=== PATIENT | female | born 1990 | race Caucasian/White ===

== ENCOUNTER 2020-07-05 09:03 | Outpatient (REF) | payer OTHER, SELFPAY ==
[2020-07-05 11:11] LABS: MANUAL DIFF FLAG NO
[2020-07-05 11:20] LABS: Basophils Percent Auto 0.3 % (0-2); Eosinophils Absolute Auto 0.1 X10*3/uL (0.0-0.4); Eosinophils Percent Auto 1.5 % (0-4); Hematocrit 44.1 % (37-47); Hemoglobin 14.3 g/dl (12.0-16.0); Imm Gran Abs Auto 0.03 X10*3/uL (0.00-0.03); Imm Gran Pct Auto 0.3 % (0.0-0.4); Lymphocytes Absolute Auto 2.4 X10*3/uL (1.2-4.9); Lymphocytes Percent Auto 25.4 % (20-40); Mean Corpuscular HGB Conc 32.4 g/dl (31.0-35.0); Mean Corpuscular Hemoglobin 31.2 pg (27.0-33.0); Mean Corpuscular Volume 96.3 fL (80-98); Mean Platelet Volume 10.5 fL (9.4-12.3); Monocytes Absolute Auto 0.6 X10*3/uL (0.1-1.2); Monocytes Percent Auto 5.9 % (2-11); Neutrophils Absolute Auto 6.4 X10*3/uL (2.0-8.3); Neutrophils Percent Auto 66.6 % (45-73); Platelet Count 291 X10*3/uL (160-400); Red Blood Count 4.58 X10*6/uL (4.20-5.50); Red Cell Distribution Width 12.2 % (11.0-16.0); White Blood Count 9.6 X10*3/uL (4.8-10.8)
[2020-07-05 11:47] LABS: Alanine Aminotransferase 20 U/L (0-31); Alkaline Phosphatase 52 U/L (39-117); Anion Gap 15 (12-20); Aspartate Amino Transferase 18 U/L (5-31); Bilirubin Total 0.8 mg/dL (0.0-1.0); Blood Urea Nitrogen 11 mg/dL (9-16); Calcium 9.7 mg/dL (8.4-10.2); Carbon Dioxide 25 mmol/L (22-29); Chloride 102 mmol/L (96-108); Cholesterol 147 mg/dL; Estimated Glomerular Filt Rate > 60; Glucose Fasting 87 mg/dL (60-99); HDL Cholesterol 47 mg/dL; LDL Cholesterol Calculated 85 mg/dl; Potassium 4.4 mmol/l (3.3-5.1); Sodium 138 mmol/L (135-145); Total Protein 7.8 g/dL (6.5-8.0); Triglycerides 78 mg/dL
[2020-07-06 20:18] LABS: Syphilis Screen Nonreactive (Nonreactive)
[2020-07-09 08:33] LABS: HIV AB/AG Nonreactive (Nonreactive); HIV Num 1 0.05 S/CO (0.00-0.99)
[2020-07-09 16:11] LABS: Chlamydia Pneumoniae IgA <1:16 titer (<1:16); Chlamydia Pneumoniae IgG <1:64 titer (<1:64); Chlamydia Pneumoniae IgM <1:10 titer (<1:10); Chlamydia Psittaci IgA <1:16 titer (<1:16); Chlamydia Psittaci IgG <1:64 titer (<1:64); Chlamydia Psittaci IgM <1:10 titer (<1:10); Chlamydia Trachomatis IgA <1:16 titer (<1:16); Chlamydia Trachomatis IgG <1:64 titer (<1:64); Chlamydia Trachomatis IgM <1:10 titer (<1:10)
== END 2020-07-05 09:04 | disposition home or self-care (01) ==
LOC: HO.HMGCLDS 09:03
PROVIDERS: PCP Internal Medicine; Visit Provider Internal Medicine
DX: Z00.00 Encounter for general adult medical examination without abnormal findings (principal)
CPT/HCPCS: 36415; 80053; 80061; 85025; 86631; 86632; 86765; 86780; 87389

== ENCOUNTER 2020-07-05 10:43 | Outpatient (REF) | payer OTHER, SELFPAY | END 2020-07-05 10:44 | disposition home or self-care (01) | LOC: HO.LAB 10:43 | PROVIDERS: Visit Provider Internal Medicine | DX: Z01.419 Encounter for gynecological examination (general) (routine) without abnormal findings (principal) | CPT/HCPCS: 88142 ==

== ENCOUNTER 2021-08-14 14:18 | Emergency (ER) | payer OTHER, SELFPAY ==
[2021-08-14 14:24] VITALS: BP 116/74; PULSE 86; RESP 18; TEMP 37; O2SAT 99; BMI 20.1
--- NOTE | 2021-08-14 14:54 | ECG_ITS ---
Test Reason : dyspnea Blood Pressure : / mmHG Vent. Rate : 063 BPM Atrial Rate : 063 BPM P-R Int : 124 ms QRS Dur : 096 ms QT Int : 396 ms P-R-T Axes : 052 107 059 degrees QTc Int : 405 ms Normal sinus rhythm Rightward axis Incomplete right bundle branch block Borderline ECG No previous ECGs available Referred By: Twan Mcclure Electronically Signed By:TANESHA BANDA MD
--- NOTE | 2021-08-14 14:56 | ED_ITS ---
HPI - SOB/Dyspnea General Chief Complaint: Dyspnea Stated Complaint: diff breathing Time Seen by Provider: 08/14/21 14:47 Source: patient Mode of arrival: ambulatory Limitations: no limitations History of Present Illness HPI Narrative: This is a 30 year old female no known medical history presenting to the ED with shortness of breath and pleuritic chest pain X2 days progressively worsening. Patient states she was seen seen at an urgent care and told she likely had a upper respiratory viral infection based off of chest xray. Rapid COVID there was negative they did a PCR and it is pending. She reports that she had body aches and progressivly worsening shortness of breath, noted to be worse at night. She notes centralized chest pain that is worse with laying down better sitting up, she also notes the pain is worse with deep inspiration. Patient reports young family member sick with an upper respiratory infection. She smokes daily both tobacco and marijuana, not on birthcontrol. Denies fevers, chills, cough, abdominal pain, nausea, vomiting, weakness, dizziness, headaches MD elicited complaint: shortness of breath, pain with inspiration and chest pain Onset (ago): day(s) (2) Timing: constant Severity: moderate Exacerbating factors: lying flat Relieving factors: upright position Associated symptoms: pain with inspiration Treatment prior to arrival: none Related Data Previous Rx's Medication Instructions Recorded hydrocortisone 2.5 % topical cream 1 applic MI BID PRN #30 g 07/05/20 with perineal applicator (Proctosol HC) varenicline 0.5 mg (11)-1 mg (42) See Rx Instructions PO PER PKG DIR 07/05/20 tablets in a dose pack (Chantix #53 ea Starting Month Box) varenicline 1 mg tablet (Chantix 1 mg PO BID #56 tab 07/05/20 Continuing Month Box) nicotine 21 mg/24 hr daily 1 patch TRANSDERMAL DAILY #28 ea 01/22/21 transdermal patch Allergies Allergy/AdvReac Type Severity Reaction Status Date / Time amoxicillin Allergy Unknown rash Verified 10/29/20 08:55 codeine Allergy Unknown nausea and Verified 10/29/20 08:55 vomitting penicillin V Allergy Unknown hives Verified 10/29/20 08:55 Sulfa (Sulfonamide Allergy Unknown hives Verified 10/29/20 08:55 Antibiotics) Review of Systems Review of Systems: Constitutional : No Weight loss, No Fever, No Chills, No Fatigue, No Malaise ENT/Mouth : No sore throat, No Rhinorrhea Eyes: No Eye Pain, No Swelling, No Redness Cardiovascular : + Chest Pain, + SOB, No Dyspnea on Exertion, No Orthopnea, No Edema, No Palpitations Respiratory : No Cough, No Sputum, No Wheezing Gastrointestinal : No Nausea, No Vomiting, No Diarrhea, No Constipation, No abdominal Pain, No Hematochezia, No Melena Genitourinary : No Dysuria, No Urinary Frequency, No Hematuria, Musculoskeletal : No joint pain, No Myalgias, No Joint Swelling Skin : No Skin Lesions, No rash Neuro : No Weakness, No Numbness, No Dizziness, No Headache Psych : No Anxiety/Panic, No Depression All other systems reviewed and are negative FOR[facility]LY [facility] Past Medical History Attestation statement: The following information was validated with the patient. Source: old records reviewed and nursing notes reviewed Medical History Annual physical exam H/O metrorrhagia Hemorrhoids Greybull-Schlatter's disease Tobacco dependence Vitamin D deficiency Surgical History H/O colonoscopy Family History Family History Mother No problems noted. Paternal Grandmother Stroke Son No problems noted. Father Unknown family medical history Social History Social History Cigarettes Per Day: 10 Advance Directives: No Advance Directives Information Provided: No Patient : No Physical Exam Vital Signs: Vital Signs: Last Vital Signs Temp 98.6 F 08/14/21 14:24 Pulse 86 08/14/21 14:24 Resp 18 08/14/21 14:24 BP 116/74 08/14/21 14:24 Pulse Ox 99 08/14/21 14:24 Body Mass Index 20.1 VSS. Appearance: Alert.? Oriented X3.? No acute distress.? Head: Normocephalic, atraumatic, no step-offs or deformities Eyes: Pupils equal, round and reactive to light.? ENT: Pharynx normal.? Neck: Normal inspection.? Neck supple.? CVS: Normal heart rate and rhythm.? Pulses normal.? Respiratory: No respiratory distress.? Breath sounds normal.?+ pain with deep inspiraiton Abdomen: Soft and nontender.? Skin: Skin warm and dry.? Normal skin color.? Normal skin turgor.? Extremities: No lower extremity edema.? No calf ttp. Negative homans sign. 5/5 strength to bilateral upper and lower extremities Back: No midline tenderness, no C-spine tenderness, full range of motion, no CVA tenderness bilaterally Neuro: Oriented X 3.? No motor deficit.? No sensory deficit. Course Reevaluation(s) Reevaluation #1: CBC shows slight leukocytosis, no anemia noted. Flu/COVID/RSV negative. Trop negative. Coags are pending. Urine preg negative. Sign out was lilia gamez to Dr. Mario. At time of sign out patients vitals were stable and she was comfortable and in no acute distress. Pending: D-dimer, if positive plan is to CTA to rule out PE. Time: 16:41 MDM - SOB/Dyspnea MDM Narrative Medical decision making narrative: 1454 30 yo female pmhx significant for tobacco use presents to the ED with pleuritic CP and shortness of breath X2 days progressively worsening. CP worse with laying down and deep inspiration, better sitting upright. Patient is a daily smoker tobacco and marijuana. Upon physical exam, VSS, patient comfortable and in no acute distress. Diminished breath sounds on right when compared to left. S1 and S2 appreciated free of murmurs. Abdomen soft non tender non distended. No focal neuro deficits. B/l upper and lower extermities 5/5 strength with 2+ pulses equal and bilateral. No lower extremity edema, no calf tenderness to palpation. Negative maria eugenia sign. Plan EKG, basic labs, flu/covid/rsv, trop, ddimer, mag, urine preg. Will rule out PE, infection, anemia, pericarditis At this time no need to do CXR at urgent care there was a PA CXR done results pectus excavatum deformity results in apparent increased density in the right paracardiac region. There are increased perihilar markings bilaterally. No focal consolidation identified. The costophrenic angles are shart, without evidence for effusion. Heart size and mediastinal contours are within normal limits. There is scoliosis. Electronically signed on Aug 14, [address] Jackie Guillen M.D. [phone] Medical Records Attestation: I reviewed the patient's medical records. Lab Data Attestation: I reviewed the patient's lab results. Result diagrams: 08/14/21 15:31 08/14/21 15:31 Labs: Lab Results 08/14/21 08/14/21 08/14/21 Range/Units 15:19 15:21 15:31 WBC 11.5 H (4.8-10.8) X10*3/uL RBC 4.19 L (4.20-5.50) X10*6/uL Hgb 13.4 (12.0-16.0) g/dl Hct 39.8 (37.0-47.0) % MCV 95.0 (80.0-98.0) fL MCH 32.0 (27.0-33.0) pg MCHC 33.7 (31.0-35.0) g/dl RDW 12.7 (11.0-16.0) % Plt Count 253 (160-400) X10*3/uL MPV 10.3 (9.4-12.3) fL Immature Gran % (Auto) 0.3 (0.0-0.4) % Neut % (Auto) 67.2 (45-73) % Lymph % (Auto) 24.3 (20-40) % Charles % (Auto) 6.6 (2-11) % Eos % (Auto) 1.3 (0-4) % Baso % (Auto) 0.3 (0-2) % Lymph # (Auto) 2.8 (1.2-4.9) X10*3/uL Charles # (Auto) 0.8 (0.1-1.2) X10*3/uL Eos # (Auto) 0.2 (0.0-0.4) X10*3/uL Baso # (Auto) 0.0 (0.0-0.2) X10*3/uL Abs Immat Gran (auto) 0.03 (0.00-0.03) X10*3/uL Absolute Neuts (auto) 7.7 (2.0-8.3) x10*3/uL Absolute Nucleated RBC 0.000 (0.0-0.012) X10*3/uL Nucleated RBC % (auto) 0.0 (0.0-0.2) /100WBC Troponin I High Sens (<3.5-17.0) ng/L Urine Test NEGATIVE (NEGATIVE) Influenza Type A (PCR) NEGATIVE (Negative) Influenza Type B (PCR) NEGATIVE (Negative) RSV RNA Qual (PCR) NEGATIVE (Negative) SARS-CoV-2 RNA (RT-PCR) NEGATIVE (Negative) 08/14/21 Range/Units 15:31 WBC (4.8-10.8) X10*3/uL RBC (4.20-5.50) X10*6/uL Hgb (12.0-16.0) g/dl Hct (37.0-47.0) % MCV (80.0-98.0) fL MCH (27.0-33.0) pg MCHC (31.0-35.0) g/dl RDW (11.0-16.0) % Plt Count (160-400) X10*3/uL MPV (9.4-12.3) fL Immature Gran % (Auto) (0.0-0.4) % Neut % (Auto) (45-73) % Lymph % (Auto) (20-40) % Charles % (Auto) (2-11) % Eos % (Auto) (0-4) % Baso % (Auto) (0-2) % Lymph # (Auto) (1.2-4.9) X10*3/uL Charles # (Auto) (0.1-1.2) X10*3/uL Eos # (Auto) (0.0-0.4) X10*3/uL Baso # (Auto) (0.0-0.2) X10*3/uL Abs Immat Gran (auto) (0.00-0.03) X10*3/uL Absolute Neuts (auto) (2.0-8.3) x10*3/uL Absolute Nucleated RBC (0.0-0.012) X10*3/uL Nucleated RBC % (auto) (0.0-0.2) /100WBC Troponin I High Sens < 3.5 (<3.5-17.0) ng/L Urine Test (NEGATIVE) Influenza Type A (PCR) (Negative) Influenza Type B (PCR) (Negative) RSV RNA Qual (PCR) (Negative) SARS-CoV-2 RNA (RT-PCR) (Negative) ECG Data Attestation: I personally reviewed and interpreted this ECG as follows: ECG interpretation date: 08/14/21 ECG interpretation time: 15:38 Prior ECG tracings: not available for review Interpretation: Ventricular rate 63, MI normal, QRS normal, QT/QTC normal. NO JOYCE or inversions. No acute ischemia. No previous to compare. Critical Care Time Critical Care Time Critical Care Time: No Discharge Plan Discharge Clinical Impression: Chest pain, pleuritic, Shortness of breath Patient Disposition: Home, Self-Care Instructions: Chest Pain (ED), Shortness of Breath (ED) Additional Instructions: Take your medications as prescribed. Follow-up with your primary care provider this week. Return to the emergency department with new or worsening symptoms. In case of emergency call 911 Prescriptions: No Action nicotine 21 mg/24 hr patch 24 hour 1 patch transdermal DAILY Qty: 28 RF: 5 Chantix Continuing Month Box 1 mg tablet 1 mg PO BID Qty: 56 RF: 1 Chantix Starting Month Box 0.5 mg (11)- 1 mg (42) tablets,dose pack See Rx Instructions PO PER PKG DIR Qty: 53 RF: 0 hydrocortisone [Proctosol HC] 2.5 % cream with perineal applicator 1 applic MI BID PRN (Reason: hemorrhoids) Qty: 30 RF: 1 Referrals: Maria A Hoyos MD [Primary Care Provider] - 2 days Stand Alone Forms: Work/School Release
[2021-08-14 15:37] LABS: MANUAL DIFF FLAG NO
[2021-08-14 15:40] LABS: Basophils Percent Auto 0.3 % (0-2); Eosinophils Absolute Auto 0.2 X10*3/uL (0.0-0.4); Eosinophils Percent Auto 1.3 % (0-4); Hematocrit 39.8 % (37.0-47.0); Hemoglobin 13.4 g/dl (12.0-16.0); Imm Gran Abs Auto 0.03 X10*3/uL (0.00-0.03); Imm Gran Pct Auto 0.3 % (0.0-0.4); Lymphocytes Absolute Auto 2.8 X10*3/uL (1.2-4.9); Lymphocytes Percent Auto 24.3 % (20-40); Mean Corpuscular HGB Conc 33.7 g/dl (31.0-35.0); Mean Platelet Volume 10.3 fL (9.4-12.3); Monocytes Absolute Auto 0.8 X10*3/uL (0.1-1.2); Monocytes Percent Auto 6.6 % (2-11); Neutrophils Absolute Auto 7.7 x10*3/uL (2.0-8.3); Neutrophils Percent Auto 67.2 % (45-73); Platelet Count 253 X10*3/uL (160-400); Red Blood Count 4.19 X10*6/uL (4.20-5.50); Red Cell Distribution Width 12.7 % (11.0-16.0); White Blood Count 11.5 X10*3/uL (4.8-10.8)
[2021-08-14 16:07] LABS: UPreg QC Valid YES; Urine Pregnancy NEGATIVE (NEGATIVE)
[2021-08-14 16:07] LABS: Troponin-I High Sensitivity < 3.5 ng/L (<3.5-17.0)
[2021-08-14 16:21] LABS: Influenza A PCR NEGATIVE (Negative); Influenza B PCR NEGATIVE (Negative); Resp Syncy Virus RNA Qual PCR NEGATIVE (Negative); SARS COV2 PCR INHOUSE NEGATIVE (Negative)
[2021-08-14] MEDS: Ketorolac Tromethamine 15 MG/ML VIAL 30 MG IVPUSH (16:45)
[2021-08-14 17:09] LABS: Alanine Aminotransferase 12 U/L (0-31); Albumin Level 3.9 g/dL (3.5-5.0); Alkaline Phosphatase 48 U/L (39-117); Anion Gap 10 (12-20); Aspartate Amino Transferase 13 U/L (5-31); Bilirubin Total 0.6 mg/dL (0.0-1.0); Blood Urea Nitrogen 7 mg/dL (9-16); Calcium 8.9 mg/dL (8.4-10.2); Carbon Dioxide 25 mmol/L (22-29); Chloride 106 mmol/L (96-108); Creatinine Clr Calc Pharmacy 122.7; Estimated Glomerular Filt Rate > 60; Glucose Random 91 mg/dL (60-115); Magnesium 1.8 mg/dL (1.6-2.6); Potassium 3.8 mmol/L (3.3-5.1); Sodium 137 mmol/L (135-145); Total Protein 6.3 g/dL (6.5-8.0)
[2021-08-14 17:17] VITALS: BP 91/43; PULSE 64; RESP 16; TEMP 37; O2SAT 96
[2021-08-14 17:17] LABS: D Dimer High Sensitivity < 150 NG/ML
[2021-08-14 18:23] VITALS: BP 106/57; PULSE 68; RESP 16; O2SAT 99
== END 2021-08-14 18:35 | disposition home or self-care (01) ==
PROVIDERS: Physician Assistant; Emergency Provider Emergency Medicine Emergency Medical Services; PCP Internal Medicine
DX: R07.81 Pleurodynia (principal); R06.02 Shortness of breath; F17.210 Nicotine dependence, cigarettes, uncomplicated; Z20.822 Contact with and (suspected) exposure to COVID-19
CPT/HCPCS: 0241U; 36415; 80053; 81025; 83735; 84484; 85025; 85379; 93005; 96374; 99284; J1885

== ENCOUNTER 2022-02-11 09:15 | Outpatient (REF) | payer OTHER, SELFPAY ==
--- NOTE | 2022-02-11 16:12 | PFT_ITS ---
INDICATION: Asthma. SPIROMETRY: FEV1 to FVC of 88% with an FEV1 of 2.06 L, which is 91% predicted. An FVC of 3.48 L, which is 86% predicted. No significant response to bronchodilators noted. Maximum voluntary ventilation 104% predicted. LUNG VOLUMES: Total lung capacity 96% predicted with an expiratory reserve volume of 59% predicted. DIFFUSION CAPACITY: DLCO 90% predicted. COMPARISONS: None. INTERPRETATION: No obstructive nor restrictive ventilatory defects identified. No significant response to bronchodilators noted. Normal lung volumes except for decrease in the expiratory reserve volume and a normal diffusion capacity. If asthma is in the differential, a methacholine challenge could be considered to further evaluate for the possibility of hyper-reactive airways disease. Clinical correlation warranted. MD SONIA Bazan/EMERALD / [id number]
== END 2022-02-11 09:16 | disposition home or self-care (01) ==
LOC: HO.RESP 09:15
PROVIDERS: PCP Internal Medicine; Visit Provider Internal Medicine
DX: J45.909 Unspecified asthma, uncomplicated (principal); F17.200 Nicotine dependence, unspecified, uncomplicated
CPT/HCPCS: 94060; 94727; 94729

== ENCOUNTER 2022-03-13 10:02 | Outpatient (REF) | payer OTHER, SELFPAY ==
--- NOTE | 2022-03-13 14:52 | PFT_ITS ---
INDICATION: Evaluation of hyper-reactive airways and diagnosis of asthma. Findings methacholine protocol was followed with increasing incremental dosages of methacholine. The patient underwent multiple spirometries monitoring closely the FEV1. After the highest dose of methacholine of 60 mg, the FEV1 decreased by 17%. It was also noted that the [id number] decreased by 50%. The patient did experience some shortness of breath and mild wheezing during the maneuvers after the maximum dose. INTERPRETATION: This is an equivocal study. The patient did not reach the PD20 after the maximum dose of methacholine, although the patient was symptomatic and had a significant decrease in the small airways. Therefore, it is very suspicious that the patient does have hyperreactive airways, but this is not a definitive study. Clinical correlation warranted. MD SONIA Bazan/EMERALD / [id number]
== END 2022-03-13 10:03 | disposition home or self-care (01) ==
LOC: HO.RESP 10:02
PROVIDERS: Visit Provider Internal Medicine
DX: J45.909 Unspecified asthma, uncomplicated (principal); R06.00 Dyspnea, unspecified
CPT/HCPCS: 94070; J7674

== ENCOUNTER 2022-03-21 08:04 | Outpatient (REF) | payer OTHER, SELFPAY ==
[2022-03-21 11:21] LABS: Hematocrit 43.2 % (37.0-47.0); Hemoglobin 13.8 g/dl (12.0-16.0); Mean Corpuscular HGB Conc 31.9 g/dl (31.0-35.0); Mean Corpuscular Hemoglobin 30.9 pg (27.0-33.0); Mean Corpuscular Volume 96.6 fL (80.0-98.0); Mean Platelet Volume 10.8 fL (9.4-12.3); Platelet Count 259 X10*3/uL (160-400); Red Blood Count 4.47 X10*6/uL (4.20-5.50); Red Cell Distribution Width 12.4 % (11.0-16.0); White Blood Count 7.9 X10*3/uL (4.8-10.8)
[2022-03-21 11:40] LABS: Alanine Aminotransferase 20 U/L (0-31); Albumin Level 4.3 g/dL (3.5-5.0); Alkaline Phosphatase 50 U/L (39-117); Anion Gap 10 (12-20); Aspartate Amino Transferase 20 U/L (5-31); Bilirubin Total 0.6 mg/dL (0.0-1.0); Blood Urea Nitrogen 14 mg/dL (9-16); Calcium 9.3 mg/dL (8.4-10.2); Carbon Dioxide 27 mmol/L (22-29); Chloride 105 mmol/L (96-108); Cholesterol 144 mg/dL; Estimated Glomerular Filt Rate > 60; Glucose Fasting 93 mg/dL (60-99); HDL Cholesterol 50 mg/dL; LDL Cholesterol Calculated 85 mg/dl; Potassium 4.7 mmol/L (3.3-5.1); Sodium 137 mmol/L (135-145); Triglycerides 49 mg/dL
== END 2022-03-21 08:05 | disposition home or self-care (01) ==
LOC: HO.HMGCLDS 08:04
PROVIDERS: PCP Internal Medicine; Visit Provider Internal Medicine
DX: Z00.00 Encounter for general adult medical examination without abnormal findings (principal)
CPT/HCPCS: 36415; 80053; 80061; 85027

== ENCOUNTER 2022-10-02 09:29 | Outpatient (REF) | payer OTHER, SELFPAY ==
[2022-10-04 13:23] LABS: Streptolysin O Antibody <50 IU/mL (<200)
== END 2022-10-02 09:30 | disposition home or self-care (01) ==
LOC: HO.HMGCLDS 09:29
PROVIDERS: PCP Internal Medicine; Visit Provider Internal Medicine
DX: Z00.00 Encounter for general adult medical examination without abnormal findings (principal)
CPT/HCPCS: 36415; 86060